=== PATIENT | female | born 1940 | race Caucasian/White ===

== ENCOUNTER → 2017-03-22 | Outpatient (CLI) | payer MEDICARE, BC ==
[2015-03-04 09:25] VITALS: BP 138/73
[~2017-03-22] MED LIST: ALTOPREV40 MG PO; ANTIVERT12.5 MG PO; BYSTOLIC5 MG PO; DYAZIDE 25 MG-31 CAP PO; KLOR-CON 1010 MEQ PO; MAGNESIUM250 M1 PO; OYSTER CALCIUM500 M1 PO; PRILOSEC 20MG20 MG PO; SYNTHROID0.05 MG PO; [UNRECOGNIZED DRUG - OTHER] PO
== END ==
LOC: LAB 11:34
DX: I10 Essential (primary) hypertension (principal); E03.4 Atrophy of thyroid (acquired); M85.89 Other specified disorders of bone density and structure, multiple sites; E78.2 Mixed hyperlipidemia

== ENCOUNTER → 2018-03-24 | Outpatient (CLI) | payer MEDICARE, BC ==
[2015-03-04 09:25] VITALS: BP 138/73
[2018-03-24 11:18] LABS: HEMATOCRIT 38.9 % (37.0-47.0); HEMOGLOBIN 12.8 g/dL (12.5-16.0); MEAN CELL VOLUME 95 fl (78-100); MEAN CORPUSCULAR HEMOGLOBIN 31 pg (27-31); MEAN CORPUSCULAR HGB CONC 33 g/dL (33-37); MEAN PLATELET VOLUME 10.3 fl (7.4-10.4); PLATELET COUNT 195 K/mm3 (130-400); RED CELL DISTRIBUTION WIDTH 13.2 % (11.5-14.5); WHITE BLOOD COUNT 3.4 K/mm3 (4.8-10.8)
[2018-03-24 13:33] LABS: LYMPHOCYTE 26 % (20-51); MONOCYTE 7 % (3-10); NEUTROPHILS 63 % (42-75)
[2018-03-24 13:35] LABS: ERYTHROCYTE SEDIMENTATION RATE 22 mm/hr (0-30)
== END ==
LOC: LAB 10:05
PROVIDERS: Internal Medicine
DX: I10 Essential (primary) hypertension (principal); E78.5 Hyperlipidemia, unspecified

== ENCOUNTER → 2018-06-13 | Outpatient (CLI) | payer MEDICARE, BC ==
[2015-03-04 09:25] VITALS: BP 138/73
[2018-06-13 13:21] LABS: ALBUMIN 4.3 g/dL (3.5-5.0); CALCIUM 9.3 mg/dL (8.4-10.2); TOTAL BILIRUBIN 0.7 mg/dL (0.2-1.3); TOTAL PROTEIN 7.5 g/dL (6.3-8.2)
[2018-06-14 00:47] LABS: EOS # 0.2 (0.04-0.40); EOS % 4.2 % (1.0-5.0); HEMATOCRIT 40.7 % (37.0-47.0); HEMOGLOBIN 13.4 g/dL (12.5-16.0); LYMPH# 1.2 (1.50-4.00); MEAN CELL VOLUME 97 fl (78-100); MEAN CORPUSCULAR HEMOGLOBIN 32 pg (27-31); MEAN CORPUSCULAR HGB CONC 33 g/dL (33-37); MEAN PLATELET VOLUME 10.6 fl (7.4-10.4); MONO # 0.4 (0.20-0.80); NEU # 2.5 (1.40-6.50); PLATELET COUNT 208 K/mm3 (130-400); RED CELL DISTRIBUTION WIDTH 13.6 % (11.5-14.5); WHITE BLOOD COUNT 4.3 K/mm3 (4.8-10.8)
[2018-06-14 01:58] LABS: ERYTHROCYTE SEDIMENTATION RATE 7 mm/hr (0-30)
== END ==
LOC: LAB 12:16
PROVIDERS: Internal Medicine
DX: R20.2 Paresthesia of skin (principal); R27.0 Ataxia, unspecified

== ENCOUNTER → 2018-06-14 | Outpatient (CLI) | payer MEDICARE, BC ==
[2015-03-04 09:25] VITALS: BP 138/73
== END ==
LOC: LAB 17:23
PROVIDERS: Internal Medicine
DX: R20.2 Paresthesia of skin (principal); R27.0 Ataxia, unspecified

== ENCOUNTER → 2018-07-03 | Outpatient (CLI) | payer MEDICARE, BC ==
[2015-03-04 09:25] VITALS: BP 138/73
== END ==
LOC: RAD 13:00
DX: I67.82 Cerebral ischemia (principal); R27.0 Ataxia, unspecified; R20.2 Paresthesia of skin; N39.46 Mixed incontinence

== ENCOUNTER 2018-09-01 08:30 | Outpatient (RCR) | payer MEDICARE, BC ==
[2015-03-04 09:25] VITALS: BP 138/73
== END 2018-09-01 09:00 | disposition home or self-care (01) ==
LOC: PT 08:30
DX: M75.41 Impingement syndrome of right shoulder (principal); R20.2 Paresthesia of skin; R27.0 Ataxia, unspecified; M62.48 Contracture of muscle, other site; Z91.81 History of falling
CPT/HCPCS: G8981-GP; G8982-GP; G8983-GP; G8985-GP

== ENCOUNTER → 2018-09-28 | Outpatient (CLI) | payer MEDICARE, BC ==
[2015-03-04 09:25] VITALS: BP 138/73
== END ==
LOC: RAD 15:12
DX: S62.617A Displaced fracture of proximal phalanx of left little finger, initial encounter for closed fracture (principal)

== ENCOUNTER → 2019-03-23 | Outpatient (CLI) | payer MEDICARE, BC ==
[2015-03-04 09:25] VITALS: BP 138/73
[2019-03-23 13:59] LABS: EOS # 0.2 (0.04-0.40); EOS % 3.8 % (1.0-5.0); HEMATOCRIT 39.8 % (37.0-47.0); HEMOGLOBIN 12.9 g/dL (12.5-16.0); LYMPH# 1.2 (1.50-4.00); MEAN CELL VOLUME 94 fl (78-100); MEAN CORPUSCULAR HEMOGLOBIN 30 pg (27-31); MEAN CORPUSCULAR HGB CONC 32 g/dL (33-37); MEAN PLATELET VOLUME 9.9 fl (7.4-10.4); MONO # 0.5 (0.20-0.80); NEU # 2.6 (1.40-6.50); PLATELET COUNT 194 K/mm3 (130-400); RED BLOOD COUNT 4.24 M/mm3 (4.10-5.30); RED CELL DISTRIBUTION WIDTH 13.3 % (11.5-14.5); WHITE BLOOD COUNT 4.5 K/mm3 (4.8-10.8)
[2019-03-23 14:11] LABS: POTASSIUM 4.1 mmol/L (3.5-5.1)
[2019-03-23 14:12] LABS: CALCIUM 9.4 mg/dL (8.3-10.5)
[2019-03-23 14:15] LABS: TOTAL BILIRUBIN 0.6 mg/dL (0.2-1.2)
[2019-03-23 15:28] LABS: ERYTHROCYTE SEDIMENTATION RATE 11 mm/hr (0-30)
[2019-03-27 18:42] LABS: VITAMIN B1 129 nmol/L (70-180)
== END ==
LOC: LAB 13:44
PROVIDERS: Internal Medicine
DX: Z12.11 Encounter for screening for malignant neoplasm of colon (principal); R20.2 Paresthesia of skin; R26.0 Ataxic gait; E03.9 Hypothyroidism, unspecified; K90.89 Other intestinal malabsorption

== ENCOUNTER → 2019-03-30 | Outpatient (CLI) | payer MEDICARE, BC ==
[2015-03-04 09:25] VITALS: BP 138/73
== END ==
LOC: LAB 10:00
DX: Z12.11 Encounter for screening for malignant neoplasm of colon (principal); R20.2 Paresthesia of skin; R26.0 Ataxic gait; R73.02 Impaired glucose tolerance (oral)

== ENCOUNTER → 2019-04-12 | Outpatient (CLI) | payer MEDICARE, BC ==
[2015-03-04 09:25] VITALS: BP 138/73
== END ==
LOC: RAD 09:51 → MAMMO 10:00 → RAD 10:00
DX: M85.851 Other specified disorders of bone density and structure, right thigh (principal); M85.852 Other specified disorders of bone density and structure, left thigh

== ENCOUNTER → 2019-06-29 | Outpatient (CLI) | payer MEDICARE, BC ==
[2015-03-04 09:25] VITALS: BP 138/73
== END ==
LOC: RAD 14:22
DX: M25.532 Pain in left wrist (principal)

== ENCOUNTER → 2019-08-23 | Outpatient (CLI) | payer MEDICARE, BC ==
[2015-03-04 09:25] VITALS: BP 138/73
== END ==
LOC: RAD 11:13
DX: M25.461 Effusion, right knee (principal)

== ENCOUNTER → 2019-10-15 | Outpatient (CLI) | payer MEDICARE, BC ==
[2015-03-04 09:25] VITALS: BP 138/73
== END ==
LOC: RAD 12:01
DX: M25.561 Pain in right knee (principal); M25.532 Pain in left wrist

== ENCOUNTER → 2019-10-18 | Outpatient (CLI) | payer MEDICARE, BC ==
[2015-03-04 09:25] VITALS: BP 138/73
== END ==
LOC: RAD 12:57
DX: M25.461 Effusion, right knee (principal); M23.91 Unspecified internal derangement of right knee

== ENCOUNTER 2019-12-30 10:31 | Emergency (ER) | payer MEDICARE, BC ==
[~2019-12-30] VITALS: Wt 75.3 kg
[2019-12-30] MEDS ORDERED: ZOFRAN ODT4 MG PO (10:36)
[2019-12-30] MEDS ORDERED: DOXYCYCLINE MO100 M3 PO (10:36)
[2019-12-30] MEDS ORDERED: DICLOFENAC SOD100 M1 PO (10:43)
[2019-12-30] MEDS ORDERED: LOVASTATIN40 M1 PO (10:43)
[2019-12-30] MEDS ORDERED: LEVOTHYROXINE0.05 MG PO (10:43)
[2019-12-30] MEDS ORDERED: ESTRADIOL42.5 GM VG (10:43)
[2019-12-30 11:11] LABS: HEMATOCRIT 36.1 % (37.0-47.0); HEMOGLOBIN 11.6 g/dL (12.5-16.0); MEAN CELL VOLUME 93 fl (78-100); MEAN CORPUSCULAR HEMOGLOBIN 30 pg (27-31); MEAN CORPUSCULAR HGB CONC 32 g/dL (33-37); MEAN PLATELET VOLUME 9.5 fl (7.4-10.4); PLATELET COUNT 103 K/mm3 (130-400); RED BLOOD COUNT 3.87 M/mm3 (4.10-5.30); RED CELL DISTRIBUTION WIDTH 13.6 % (11.5-14.5); WHITE BLOOD COUNT 1.2 K/mm3 (4.8-10.8)
[2019-12-30 11:14] LABS: URINE APPEARANCE CLEAR; URINE BILIRUBIN NEGATIVE (NEGATIVE); URINE BLOOD 50 ery/uL (NEGATIVE); URINE COLOR YELLOW; URINE GLUCOSE NEGATIVE (NEGATIVE); URINE KETONE SMALL (NEGATIVE); URINE LEUKOCYTE ESTERASE NEGATIVE (NEGATIVE); URINE MUCUS PRESENT (NOT PRESENT); URINE NITRATE NEGATIVE (NEGATIVE); URINE PROTEIN(semi-quant) 1+ mg/dL (NEGATIVE); URINE UROBILINOGEN NORMAL (NORMAL)
[2019-12-30 11:18] LABS: ALBUMIN 3.5 g/dL (3.4-4.8)
[2019-12-30 11:19] LABS: POTASSIUM 3.3 mmol/L (3.5-5.1)
[2019-12-30 11:21] LABS: TOTAL PROTEIN 6.3 g/dL (6.2-8.1)
[2019-12-30 11:23] LABS: TOTAL BILIRUBIN 0.4 mg/dL (0.2-1.2)
[2019-12-30 11:27] LABS: BAND 4 % (0-10); NEUTROPHILS 30 % (42-75)
[2019-12-30 11:28] LABS: LYMPHOCYTE 36 % (20-51); MONOCYTE 26 % (3-10)
[2019-12-30 17:05] VITALS: BP 130/47
[2020-01-02 21:47] LABS: LYME DISEASE EIA Negative (Negative); Q FEVER PHASE I IGG ANTIBODY <1:16 (<1:16); Q FEVER PHASE I IGM ANTIBODY <1:16 (<1:16)
== END 2019-12-30 17:00 | disposition home or self-care (01) ==
LOC: ED 10:31
PROVIDERS: Family Medicine
DX: R53.81 Other malaise (principal); D70.9 Neutropenia, unspecified; E03.9 Hypothyroidism, unspecified; K21.9 Gastro-esophageal reflux disease without esophagitis; I10 Essential (primary) hypertension
CPT/HCPCS: J7030

== ENCOUNTER → 2019-12-31 | Outpatient (CLI) | payer MEDICARE, BC ==
[2019-12-30 17:05] VITALS: BP 130/47
[~2019-12-31] MED LIST changes: +DICLOFENAC SOD100 M1 PO; +DOXYCYCLINE MO100 M3 PO; +ESTRADIOL42.5 GM VG; +LEVOTHYROXINE0.05 MG PO; +LOVASTATIN40 M1 PO; +ZOFRAN ODT4 MG PO
== END ==
LOC: LAB 13:48
DX: R19.7 Diarrhea, unspecified (principal)

== ENCOUNTER → 2020-01-01 | Outpatient (CLI) | payer MEDICARE, BC ==
[2019-12-30 17:05] VITALS: BP 130/47
[2020-01-01 09:30] LABS: HEMATOCRIT 37.2 % (37.0-47.0); MEAN CELL VOLUME 93 fl (78-100); MEAN CORPUSCULAR HEMOGLOBIN 30 pg (27-31); MEAN CORPUSCULAR HGB CONC 32 g/dL (33-37); MEAN PLATELET VOLUME 9.5 fl (7.4-10.4); PLATELET COUNT 124 K/mm3 (130-400); RED BLOOD COUNT 3.99 M/mm3 (4.10-5.30); RED CELL DISTRIBUTION WIDTH 13.6 % (11.5-14.5); WHITE BLOOD COUNT 2.2 K/mm3 (4.8-10.8)
[2020-01-01 10:12] LABS: BAND 2 % (0-10); LYMPHOCYTE 24 % (20-51); MONOCYTE 10 % (3-10); NEUTROPHILS 63 % (42-75)
[2020-01-01 10:44] LABS: ERYTHROCYTE SEDIMENTATION RATE 13 mm/hr (0-30)
[2020-01-01 10:53] LABS: ALBUMIN 3.4 g/dL (3.4-4.8); POTASSIUM 3.2 mmol/L (3.5-5.1)
[2020-01-01 10:55] LABS: CALCIUM 8.3 mg/dL (8.3-10.5)
[2020-01-01 10:56] LABS: TOTAL PROTEIN 6.2 g/dL (6.2-8.1)
[2020-01-01 10:58] LABS: TOTAL BILIRUBIN 0.5 mg/dL (0.2-1.2)
== END ==
LOC: LAB 08:59
PROVIDERS: Internal Medicine
DX: D61.818 Other pancytopenia (principal); S20.169A Insect bite (nonvenomous) of breast, unspecified breast, initial encounter; R19.7 Diarrhea, unspecified

== ENCOUNTER → 2020-01-08 | Outpatient (CLI) | payer MEDICARE, BC ==
[2019-12-30 17:05] VITALS: BP 130/47
[2020-01-08 09:10] LABS: HEMATOCRIT 36.7 % (37.0-47.0); MEAN CELL VOLUME 93 fl (78-100); MEAN CORPUSCULAR HEMOGLOBIN 30 pg (27-31); MEAN CORPUSCULAR HGB CONC 33 g/dL (33-37); MEAN PLATELET VOLUME 9.2 fl (7.4-10.4); PLATELET COUNT 286 K/mm3 (130-400); RED BLOOD COUNT 3.95 M/mm3 (4.10-5.30); RED CELL DISTRIBUTION WIDTH 13.5 % (11.5-14.5); WHITE BLOOD COUNT 2.5 K/mm3 (4.8-10.8)
[2020-01-08 09:20] LABS: ALBUMIN 3.7 g/dL (3.4-4.8)
[2020-01-08 09:21] LABS: POTASSIUM 3.4 mmol/L (3.5-5.1)
[2020-01-08 09:22] LABS: CALCIUM 8.9 mg/dL (8.3-10.5)
[2020-01-08 09:23] LABS: TOTAL PROTEIN 6.4 g/dL (6.2-8.1)
[2020-01-08 09:25] LABS: TOTAL BILIRUBIN 0.6 mg/dL (0.2-1.2)
[2020-01-08 09:29] LABS: MAGNESIUM 1.62 mg/dL (1.60-2.60)
[2020-01-08 09:42] LABS: LYMPHOCYTE 23 % (20-51); MONOCYTE 16 % (3-10); NEUTROPHILS 55 % (42-75)
== END ==
LOC: LAB 08:53
PROVIDERS: Internal Medicine
DX: S20.169A Insect bite (nonvenomous) of breast, unspecified breast, initial encounter (principal); D61.818 Other pancytopenia; R20.2 Paresthesia of skin; R19.7 Diarrhea, unspecified; R26.0 Ataxic gait

== ENCOUNTER → 2020-01-16 | Outpatient (CLI) | payer MEDICARE, BC ==
[2019-12-30 17:05] VITALS: BP 130/47
[2020-01-16 09:27] LABS: HEMATOCRIT 35.7 % (37.0-47.0); HEMOGLOBIN 11.6 g/dL (12.5-16.0); MEAN CELL VOLUME 94 fl (78-100); MEAN CORPUSCULAR HEMOGLOBIN 31 pg (27-31); MEAN CORPUSCULAR HGB CONC 33 g/dL (33-37); MEAN PLATELET VOLUME 9.2 fl (7.4-10.4); PLATELET COUNT 209 K/mm3 (130-400); WHITE BLOOD COUNT 2.7 K/mm3 (4.8-10.8)
[2020-01-16 09:37] LABS: ALBUMIN 3.6 g/dL (3.4-4.8); POTASSIUM 3.7 mmol/L (3.5-5.1)
[2020-01-16 09:39] LABS: CALCIUM 8.7 mg/dL (8.3-10.5)
[2020-01-16 09:40] LABS: TOTAL PROTEIN 6.3 g/dL (6.2-8.1)
[2020-01-16 09:42] LABS: TOTAL BILIRUBIN 0.6 mg/dL (0.2-1.2)
[2020-01-16 09:46] LABS: MAGNESIUM 1.92 mg/dL (1.60-2.60)
[2020-01-16 09:56] LABS: LYMPHOCYTE 32 % (20-51); MONOCYTE 13 % (3-10); NEUTROPHILS 54 % (42-75)
== END ==
LOC: LAB 09:11
PROVIDERS: Internal Medicine
DX: S20.169A Insect bite (nonvenomous) of breast, unspecified breast, initial encounter (principal); D61.818 Other pancytopenia; R20.2 Paresthesia of skin; R19.7 Diarrhea, unspecified; R26.0 Ataxic gait

== ENCOUNTER 2020-02-18 10:46 | Emergency (ER) | payer MEDICARE, BC ==
[~2020-02-18] VITALS: Ht 172.7 cm; Wt 72.7 kg
[2020-02-18] MEDS ORDERED: OMEPRAZOLE40 MG PO (12:42)
[2020-02-18] MEDS ORDERED: TYLENOL EXTRA500 M2 PO (12:42)
[2020-02-18 12:44] VITALS: BP 155/76
== END 2020-02-18 12:39 | disposition other institution (70) ==
LOC: ED 10:46
DX: S32.502A Unspecified fracture of left pubis, initial encounter for closed fracture (principal); S32.10XA Unspecified fracture of sacrum, initial encounter for closed fracture; I10 Essential (primary) hypertension; K21.9 Gastro-esophageal reflux disease without esophagitis; Z90.710 Acquired absence of both cervix and uterus; W01.0XXA Fall on same level from slipping, tripping and stumbling without subsequent striking against object, initial encounter; Y92.009 Unspecified place in unspecified non-institutional (private) residence as the place of occurrence of the external cause

== ENCOUNTER 2020-02-18 12:39 | Inpatient (IN) | payer MEDICARE, BC ==
[~2020-02-18] VITALS: Ht 172.7 cm; Wt 72.6 kg
[2020-02-18] MEDS ORDERED: TYLENOL EXTRA500 M2 PO (12:42)
[2020-02-18] MEDS ORDERED: OMEPRAZOLE40 MG PO (12:42)
[2020-02-18 13:40] VITALS: BP 155/76
[2020-02-18 14:15] VITALS: BP 155/76
[2020-02-18 18:07] VITALS: BP 141/61
[2020-02-18 21:31] VITALS: BP 123/67
[2020-02-19 02:24] VITALS: BP 115/65
[2020-02-19 05:43] VITALS: BP 114/63
[2020-02-19 10:00] VITALS: BP 136/73
[2020-02-19 13:49] VITALS: BP 137/65
[2020-02-19 17:19] VITALS: BP 125/67
[2020-02-19 21:33] VITALS: BP 112/58
[2020-02-20 01:17] VITALS: BP 115/60
[2020-02-20 06:11] VITALS: BP 131/68
[2020-02-20 10:23] VITALS: BP 143/60
[2020-02-20 11:02] LABS: HEMATOCRIT 33.6 % (37.0-47.0); HEMOGLOBIN 10.8 g/dL (12.5-16.0); MEAN CELL VOLUME 96 fl (78-100); MEAN CORPUSCULAR HEMOGLOBIN 31 pg (27-31); MEAN CORPUSCULAR HGB CONC 32 g/dL (33-37); MEAN PLATELET VOLUME 9.6 fl (7.4-10.4); PLATELET COUNT 165 K/mm3 (130-400); RED BLOOD COUNT 3.49 M/mm3 (4.10-5.30); RED CELL DISTRIBUTION WIDTH 14.1 % (11.5-14.5); WHITE BLOOD COUNT 3.6 K/mm3 (4.8-10.8)
[2020-02-20 11:11] LABS: ALBUMIN 3.5 g/dL (3.4-4.8); POTASSIUM 4.2 mmol/L (3.5-5.1)
[2020-02-20 11:12] LABS: CALCIUM 8.8 mg/dL (8.3-10.5)
[2020-02-20 11:13] LABS: TOTAL PROTEIN 6.1 g/dL (6.2-8.1)
[2020-02-20 11:15] LABS: TOTAL BILIRUBIN 0.5 mg/dL (0.2-1.2)
[2020-02-20 11:20] LABS: MAGNESIUM 2.23 mg/dL (1.60-2.60)
[2020-02-20 11:31] LABS: LYMPHOCYTE 16 % (20-51); MONOCYTE 9 % (3-10); NEUTROPHILS 71 % (42-75)
[2020-02-20 12:13] LABS: URINE APPEARANCE CLEAR; URINE COLOR YELLOW
[2020-02-20 12:14] LABS: URINE BILIRUBIN NEGATIVE (NEGATIVE); URINE BLOOD NEGATIVE (NEGATIVE); URINE GLUCOSE NEGATIVE (NEGATIVE); URINE KETONE NEGATIVE (NEGATIVE); URINE LEUKOCYTE ESTERASE NEGATIVE (NEGATIVE); URINE MUCUS PRESENT (NOT PRESENT); URINE NITRATE NEGATIVE (NEGATIVE); URINE PROTEIN(semi-quant) TRACE mg/dL (NEGATIVE); URINE UROBILINOGEN NORMAL (NORMAL)
[2020-02-20 13:50] VITALS: BP 118/67
[2020-02-20 18:19] VITALS: BP 147/64
[2020-02-20 21:38] VITALS: BP 159/72
[2020-02-21 02:05] VITALS: BP 137/68
[2020-02-21 05:44] VITALS: BP 145/66
[2020-02-21 09:39] VITALS: BP 149/76
== END 2020-02-21 10:10 | disposition swing bed (61) | DRG 536 ==
LOC: MED/SURG 12:39
PROVIDERS: Physician Assistant; ADMIT Nurse Practitioner Primary Care
DX: S32.502A Unspecified fracture of left pubis, initial encounter for closed fracture (principal); S32.10XA Unspecified fracture of sacrum, initial encounter for closed fracture; I47.1 Supraventricular tachycardia; Z66 Do not resuscitate; I10 Essential (primary) hypertension; E03.9 Hypothyroidism, unspecified; K21.9 Gastro-esophageal reflux disease without esophagitis; W19.XXXA Unspecified fall, initial encounter; Y92.009 Unspecified place in unspecified non-institutional (private) residence as the place of occurrence of the external cause; Z79.1 Long term (current) use of non-steroidal anti-inflammatories (NSAID); Z90.710 Acquired absence of both cervix and uterus; Z87.891 Personal history of nicotine dependence; Z88.6 Allergy status to analgesic agent; Z88.5 Allergy status to narcotic agent
CPT/HCPCS: J1650

== ENCOUNTER 2020-02-21 10:10 | Inpatient (IN) | payer MEDICARE, BC ==
[~2020-02-21] VITALS: Ht 172.7 cm; Wt 72.6 kg
[~2020-02-21 10:10] MED LIST changes: +OMEPRAZOLE40 MG PO; +TYLENOL EXTRA500 M2 PO
[2020-02-21 10:17] VITALS: BP 149/76
[2020-02-21 17:17] VITALS: BP 162/70
[2020-02-21 18:12] VITALS: BP 162/70
[2020-02-22 06:02] VITALS: BP 133/52
[2020-02-22 17:56] VITALS: BP 129/67
[2020-02-23 06:08] VITALS: BP 133/54
[2020-02-23 17:17] VITALS: BP 122/64
[2020-02-24 06:29] VITALS: BP 129/62
[2020-02-24 17:14] VITALS: BP 119/62
[2020-02-25 05:58] VITALS: BP 124/57
[2020-02-25 18:15] VITALS: BP 144/71
[2020-02-26 05:24] VITALS: BP 112/51
[2020-02-26 16:42] VITALS: BP 122/65
[2020-02-27 05:41] VITALS: BP 123/59
[2020-02-27 17:04] VITALS: BP 115/64
[2020-02-28 05:35] VITALS: BP 138/55
[2020-02-28 17:51] VITALS: BP 127/67
[2020-02-29 05:51] VITALS: BP 135/62
[2020-02-29 17:23] VITALS: BP 122/57
[2020-03-01 06:22] VITALS: BP 143/65
[2020-03-01 17:42] VITALS: BP 120/70
[2020-03-02 06:00] VITALS: BP 128/69
[2020-03-02 18:07] VITALS: BP 116/57
[2020-03-03 05:40] VITALS: BP 127/62
[2020-03-03 17:20] VITALS: BP 115/77
[2020-03-04 05:27] VITALS: BP 143/53
[2020-03-04 17:21] VITALS: BP 118/66
[2020-03-05 05:50] VITALS: BP 138/70
[2020-03-05 17:05] VITALS: BP 125/71
[2020-03-06 05:31] VITALS: BP 134/67
== END 2020-03-06 12:30 | disposition home health service (06) | DRG 560 ==
LOC: MED/SURG 10:10
PROVIDERS: ADMIT Nurse Practitioner Primary Care
DX: S32.10XD Unspecified fracture of sacrum, subsequent encounter for fracture with routine healing (principal); I47.1 Supraventricular tachycardia; S32.502D Unspecified fracture of left pubis, subsequent encounter for fracture with routine healing; I10 Essential (primary) hypertension; E03.9 Hypothyroidism, unspecified; K21.9 Gastro-esophageal reflux disease without esophagitis; W19.XXXD Unspecified fall, subsequent encounter; R53.81 Other malaise; Z90.710 Acquired absence of both cervix and uterus; Z88.6 Allergy status to analgesic agent; Z88.5 Allergy status to narcotic agent
CPT/HCPCS: J1650

== ENCOUNTER → 2020-03-18 | Outpatient (CLI) | payer MEDICARE, BC ==
[2020-03-06 05:31] VITALS: BP 134/67
[2020-03-18 17:02] LABS: ALBUMIN 4.1 g/dL (3.4-4.8); POTASSIUM 4.6 mmol/L (3.5-5.1)
[2020-03-18 17:03] LABS: CALCIUM 9.1 mg/dL (8.3-10.5)
[2020-03-18 17:05] LABS: TOTAL PROTEIN 7.6 g/dL (6.2-8.1)
[2020-03-18 17:06] LABS: TOTAL BILIRUBIN 0.4 mg/dL (0.2-1.2)
== END ==
LOC: LAB 16:33
PROVIDERS: Internal Medicine
DX: I10 Essential (primary) hypertension (principal); M85.80 Other specified disorders of bone density and structure, unspecified site; I47.1 Supraventricular tachycardia; D61.818 Other pancytopenia

== ENCOUNTER → 2020-04-14 | Outpatient (CLI) | payer MEDICARE, BC ==
[2020-04-14 16:06] LABS: EOS # 0.3 (0.04-0.40); EOS % 6.4 % (1.0-5.0); HEMATOCRIT 34.7 % (37.0-47.0); HEMOGLOBIN 11.4 g/dL (12.5-16.0); LYMPH# 1.3 (1.50-4.00); MEAN CELL VOLUME 96 fl (78-100); MEAN CORPUSCULAR HEMOGLOBIN 32 pg (27-31); MEAN CORPUSCULAR HGB CONC 33 g/dL (33-37); MONO # 0.4 (0.20-0.80); NEU # 2.3 (1.40-6.50); PLATELET COUNT 239 K/mm3 (130-400); RED BLOOD COUNT 3.61 M/mm3 (4.10-5.30); RED CELL DISTRIBUTION WIDTH 13.1 % (11.5-14.5); WHITE BLOOD COUNT 4.4 K/mm3 (4.8-10.8)
[2020-04-14 16:14] LABS: ALBUMIN 4.1 g/dL (3.4-4.8); POTASSIUM 3.8 mmol/L (3.5-5.1)
[2020-04-14 16:15] LABS: CALCIUM 8.9 mg/dL (8.3-10.5)
[2020-04-14 16:16] LABS: TOTAL PROTEIN 7.4 g/dL (6.2-8.1)
[2020-04-14 16:18] LABS: TOTAL BILIRUBIN 0.4 mg/dL (0.2-1.2)
[2020-04-14 16:24] LABS: MAGNESIUM 2.14 mg/dL (1.60-2.60)
== END ==
LOC: LAB 15:53
PROVIDERS: Internal Medicine
DX: Z12.11 Encounter for screening for malignant neoplasm of colon (principal); M85.89 Other specified disorders of bone density and structure, multiple sites; I47.1 Supraventricular tachycardia; E03.9 Hypothyroidism, unspecified; D61.818 Other pancytopenia; S20.169A Insect bite (nonvenomous) of breast, unspecified breast, initial encounter; R19.7 Diarrhea, unspecified; R20.2 Paresthesia of skin; R26.0 Ataxic gait

== ENCOUNTER → 2020-06-03 | Outpatient (CLI) | payer MEDICARE, BC ==
[2020-06-03 11:25] LABS: POTASSIUM 3.8 mmol/L (3.5-5.1)
[2020-06-03 11:26] LABS: CALCIUM 8.9 mg/dL (8.3-10.5)
[2020-06-03 11:27] LABS: TOTAL PROTEIN 6.8 g/dL (6.2-8.1)
[2020-06-03 11:29] LABS: TOTAL BILIRUBIN 0.5 mg/dL (0.2-1.2)
[2020-06-03 11:33] LABS: MAGNESIUM 2.07 mg/dL (1.60-2.60)
== END ==
LOC: LAB 11:01
PROVIDERS: Internal Medicine
DX: S20.169A Insect bite (nonvenomous) of breast, unspecified breast, initial encounter (principal); D61.818 Other pancytopenia; R19.7 Diarrhea, unspecified; R20.2 Paresthesia of skin; R26.0 Ataxic gait

== ENCOUNTER 2020-06-11 08:45 | Outpatient (RCR) | payer MEDICARE, BC | END 2020-06-11 09:15 | disposition still patient (30) | LOC: PT 08:45 | DX: S32.9XXA Fracture of unspecified parts of lumbosacral spine and pelvis, initial encounter for closed fracture (principal); R53.1 Weakness; R20.2 Paresthesia of skin; R27.0 Ataxia, unspecified ==

== ENCOUNTER → 2020-11-21 | Outpatient (CLI) | payer MEDICARE, BC | LOC: CARDREHAB 07:50 → CARDLAB 13:02 | DX: Z01.818 Encounter for other preprocedural examination (principal); R06.00 Dyspnea, unspecified | CPT/HCPCS: A9500 ==

== ENCOUNTER → 2020-12-22 | Outpatient (CLI) | payer MEDICARE, BC | LOC: VAS 11:20 → RAD 11:30 | DX: I51.7 Cardiomegaly (principal) ==

== ENCOUNTER → 2021-04-16 | Outpatient (CLI) | payer MEDICARE, BC ==
[2021-04-16 10:27] LABS: BASO # 0.02 (0.02-0.10); EOS # 0.19 (0.04-0.40); HEMATOCRIT 41.3 % (37.0-47.0); HEMOGLOBIN 13.1 g/dL (12.5-16.0); LYMPH# 1.29 (1.50-4.00); MEAN CELL VOLUME 97 fl (78-100); MEAN CORPUSCULAR HEMOGLOBIN 31 pg (27-31); MEAN CORPUSCULAR HGB CONC 32 g/dL (33-37); MEAN PLATELET VOLUME 9.2 fl (7.4-10.4); MONO # 0.39 (0.20-0.80); PLATELET COUNT 193 K/mm3 (130-400); RED BLOOD COUNT 4.28 M/mm3 (4.10-5.30); RED CELL DISTRIBUTION WIDTH 13.5 % (11.5-14.5); WHITE BLOOD COUNT 3.8 K/mm3 (4.8-10.8)
[2021-04-16 10:33] LABS: ALBUMIN 3.9 g/dL (3.4-4.8); POTASSIUM 4.8 mmol/L (3.5-5.1)
[2021-04-16 10:34] LABS: CALCIUM 9.2 mg/dL (8.3-10.5)
[2021-04-16 10:37] LABS: TOTAL BILIRUBIN 0.5 mg/dL (0.2-1.2)
[2021-04-16 11:35] LABS: ERYTHROCYTE SEDIMENTATION RATE 11 mm/hr (0-30)
== END ==
LOC: MAMMO 10:00 → RAD 10:00
PROVIDERS: Internal Medicine
DX: M85.80 Other specified disorders of bone density and structure, unspecified site (principal); E78.2 Mixed hyperlipidemia; I10 Essential (primary) hypertension; E03.4 Atrophy of thyroid (acquired)

== ENCOUNTER → 2021-06-15 | Outpatient (CLI) | payer MEDICARE, BC ==
[2021-06-15 16:53] LABS: POTASSIUM 4.4 mmol/L (3.5-5.1)
[2021-06-15 16:54] LABS: ALBUMIN 3.8 g/dL (3.4-4.8)
[2021-06-15 16:55] LABS: CALCIUM 9.5 mg/dL (8.3-10.5)
[2021-06-15 16:58] LABS: TOTAL BILIRUBIN 0.4 mg/dL (0.2-1.2)
== END ==
LOC: LAB 15:50
PROVIDERS: Internal Medicine
DX: E78.2 Mixed hyperlipidemia (principal)

== ENCOUNTER → 2022-04-30 | Outpatient (CLI) | payer MEDICARE, BC ==
[2022-04-30 09:55] LABS: BASO # 0.03 K/mm3 (0.02-0.10); EOS # 0.25 K/mm3 (0.04-0.40); EOS % 5.8 % (1.0-5.0); HEMOGLOBIN 13.5 g/dL (12.5-16.0); LYMPH# 1.21 K/mm3 (1.50-4.00); MEAN CELL VOLUME 97 fl (78-100); MEAN CORPUSCULAR HEMOGLOBIN 31 pg (27-31); MEAN CORPUSCULAR HGB CONC 32 g/dL (33-37); MEAN PLATELET VOLUME 10.4 fl (7.4-10.4); MONO # 0.46 K/mm3 (0.20-0.80); NEU # 2.38 K/mm3 (1.40-6.50); PLATELET COUNT 185 K/mm3 (130-400); RED BLOOD COUNT 4.32 M/mm3 (4.10-5.30); WHITE BLOOD COUNT 4.3 K/mm3 (4.8-10.8)
[2022-04-30 09:58] LABS: ALBUMIN 4.1 g/dL (3.4-4.8); POTASSIUM 4.7 mmol/L (3.5-5.1)
[2022-04-30 09:59] LABS: CALCIUM 9.5 mg/dL (8.3-10.5)
[2022-04-30 10:02] LABS: TOTAL BILIRUBIN 0.9 mg/dL (0.2-1.2)
[2022-04-30 10:07] LABS: MAGNESIUM 2.21 mg/dL (1.60-2.60)
== END ==
LOC: LAB 09:12
PROVIDERS: Internal Medicine
DX: Z12.11 Encounter for screening for malignant neoplasm of colon (principal)

== ENCOUNTER → 2022-05-07 | Outpatient (CLI) | payer MEDICARE, BC | LOC: LAB 14:17 | DX: Z12.11 Encounter for screening for malignant neoplasm of colon (principal) ==

== ENCOUNTER → 2022-05-21 | Outpatient (CLI) | payer MEDICARE, BC ==
[2022-05-21 13:42] LABS: URINE APPEARANCE CLEAR; URINE BILIRUBIN NEGATIVE (NEGATIVE); URINE BLOOD NEGATIVE (NEGATIVE); URINE COLOR YELLOW; URINE GLUCOSE NEGATIVE (NEGATIVE); URINE KETONE NEGATIVE (NEGATIVE); URINE LEUKOCYTE ESTERASE NEGATIVE (NEGATIVE); URINE NITRATE NEGATIVE (NEGATIVE); URINE PROTEIN(semi-quant) NEGATIVE (NEGATIVE); URINE UROBILINOGEN NORMAL (NORMAL)
[2022-05-21 13:43] LABS: URINE WBC 0-1 /hpf (0-3)
== END ==
LOC: LAB 12:17
PROVIDERS: Internal Medicine
DX: N39.0 Urinary tract infection, site not specified (principal)

== ENCOUNTER → 2022-10-22 | Outpatient (CLI) | payer MEDICARE, BC ==
[2022-10-22 09:09] LABS: POTASSIUM 4.3 mmol/L (3.5-5.1)
[2022-10-22 09:10] LABS: ALBUMIN 4.1 g/dL (3.4-4.8)
[2022-10-22 09:11] LABS: CALCIUM 9.5 mg/dL (8.3-10.5)
[2022-10-22 09:12] LABS: TOTAL PROTEIN 6.8 g/dL (6.2-8.1)
[2022-10-22 09:14] LABS: BASO # 0.02 K/mm3 (0.02-0.10); EOS # 0.25 K/mm3 (0.04-0.40); EOS % 6.7 % (1.0-5.0); HEMATOCRIT 40.6 % (37.0-47.0); HEMOGLOBIN 13.2 g/dL (12.5-16.0); LYMPH# 1.18 K/mm3 (1.50-4.00); MEAN CELL VOLUME 98 fl (78-100); MEAN CORPUSCULAR HEMOGLOBIN 32 pg (27-31); MEAN CORPUSCULAR HGB CONC 33 g/dL (33-37); MONO # 0.34 K/mm3 (0.20-0.80); NEU # 1.94 K/mm3 (1.40-6.50); PLATELET COUNT 166 K/mm3 (130-400); RED BLOOD COUNT 4.16 M/mm3 (4.10-5.30); RED CELL DISTRIBUTION WIDTH 12.8 % (11.5-14.5); TOTAL BILIRUBIN 0.8 mg/dL (0.2-1.2); WHITE BLOOD COUNT 3.7 K/mm3 (4.8-10.8)
[2022-10-22 10:55] LABS: ERYTHROCYTE SEDIMENTATION RATE 7 mm/hr (0-30)
== END ==
LOC: LAB 08:49
PROVIDERS: Internal Medicine
DX: K90.9 Intestinal malabsorption, unspecified (principal); I47.1 Supraventricular tachycardia; E78.2 Mixed hyperlipidemia; E03.4 Atrophy of thyroid (acquired); I10 Essential (primary) hypertension

== ENCOUNTER → 2024-05-21 | Outpatient (CLI) | payer MEDICARE, BC ==
[2024-05-21 08:58] LABS: BASO # 0.02 K/mm3 (0.02-0.10); EOS # 0.59 K/mm3 (0.04-0.40); HEMATOCRIT 40.7 % (37.0-47.0); HEMOGLOBIN 13.5 g/dL (12.5-16.0); LYMPH# 1.15 K/mm3 (1.50-4.00); MEAN CELL VOLUME 95 fl (78-100); MEAN CORPUSCULAR HEMOGLOBIN 32 pg (27-31); MEAN CORPUSCULAR HGB CONC 33 g/dL (33-37); MEAN PLATELET VOLUME 9.7 fl (7.4-10.4); MONO # 0.38 K/mm3 (0.20-0.80); NEU # 1.79 K/mm3 (1.40-6.50); PLATELET COUNT 180 K/mm3 (130-400); RED BLOOD COUNT 4.28 M/mm3 (4.10-5.30); WHITE BLOOD COUNT 3.9 K/mm3 (4.8-10.8)
[2024-05-21 09:08] LABS: ALBUMIN 4.1 g/dL (3.4-4.8)
[2024-05-21 09:09] LABS: CALCIUM 9.9 mg/dL (8.3-10.5)
[2024-05-21 09:11] LABS: TOTAL PROTEIN 6.8 g/dL (6.2-8.1)
[2024-05-21 09:12] LABS: TOTAL BILIRUBIN 0.8 mg/dL (0.2-1.2)
[2024-05-21 09:17] LABS: MAGNESIUM 2.09 mg/dL (1.60-2.60)
== END ==
LOC: LAB 08:44
PROVIDERS: Internal Medicine
DX: Z12.11 Encounter for screening for malignant neoplasm of colon (principal); K90.9 Intestinal malabsorption, unspecified; E03.4 Atrophy of thyroid (acquired); I10 Essential (primary) hypertension; E78.2 Mixed hyperlipidemia; R73.9 Hyperglycemia, unspecified

== ENCOUNTER → 2024-07-05 | Outpatient (CLI) | payer MEDICARE, BC | LOC: LAB 13:51 | DX: Z12.11 Encounter for screening for malignant neoplasm of colon (principal); K90.9 Intestinal malabsorption, unspecified; E03.4 Atrophy of thyroid (acquired); E78.2 Mixed hyperlipidemia; R73.9 Hyperglycemia, unspecified; I10 Essential (primary) hypertension ==

== ENCOUNTER → 2024-11-08 | Outpatient (CLI) | payer MEDICARE, BC | LOC: MAMMO 15:30 → RAD 15:33 | DX: Z13.820 Encounter for screening for osteoporosis (principal); M85.89 Other specified disorders of bone density and structure, multiple sites ==

== ENCOUNTER → 2024-11-22 | Outpatient (CLI) | payer MEDICARE, BC ==
[2024-11-22 15:33] LABS: BASO # 0.02 K/mm3 (0.02-0.10); EOS # 0.12 K/mm3 (0.04-0.40); EOS % 2.9 % (1.0-5.0); HEMATOCRIT 40.7 % (37.0-47.0); HEMOGLOBIN 12.9 g/dL (12.5-16.0); LYMPH# 1.21 K/mm3 (1.50-4.00); MEAN CELL VOLUME 98 fl (78-100); MEAN CORPUSCULAR HEMOGLOBIN 31 pg (27-31); MEAN CORPUSCULAR HGB CONC 32 g/dL (33-37); MEAN PLATELET VOLUME 9.9 fl (7.4-10.4); MONO # 0.38 K/mm3 (0.20-0.80); NEU # 2.35 K/mm3 (1.40-6.50); PLATELET COUNT 176 K/mm3 (130-400); RED BLOOD COUNT 4.15 M/mm3 (4.10-5.30); WHITE BLOOD COUNT 4.1 K/mm3 (4.8-10.8)
[2024-11-22 15:41] LABS: ALBUMIN 4.1 g/dL (3.4-4.8)
[2024-11-22 15:43] LABS: CALCIUM 9.7 mg/dL (8.3-10.5)
[2024-11-22 15:44] LABS: TOTAL PROTEIN 7.2 g/dL (6.2-8.1)
[2024-11-22 15:46] LABS: TOTAL BILIRUBIN 0.4 mg/dL (0.2-1.2)
== END ==
LOC: LAB 15:18
PROVIDERS: Internal Medicine
DX: I10 Essential (primary) hypertension (principal)

== ENCOUNTER → 2024-12-18 | Outpatient (CLI) | payer MEDICARE, BC ==
[~2024-12-18] VITALS: Ht 167.6 cm; Wt 73.0 kg
== END ==
LOC: PT 15:57 → CARDREHAB 15:57
DX: G47.19 Other hypersomnia (principal)
CPT/HCPCS: G0399